=== PATIENT | male | born 1945 | race African-American/Black ===

== ENCOUNTER → 2016-06-01 | Outpatient (CLI) | payer MEDICARE | END | disposition home or self-care (01) | LOC: PCVCIMAG 12:44 | PROVIDERS: ATTEND Internal Medicine Cardiovascular Disease | DX: I48.92 Unspecified atrial flutter (principal); E78.1 Pure hyperglyceridemia; I10 Essential (primary) hypertension; I77.9 Disorder of arteries and arterioles, unspecified | CPT/HCPCS: 93005; 93306; G0463 ==